=== PATIENT | female | born 1960 | race Caucasian/White ===

== ENCOUNTER → 2019-01-08 | Day surgery (SDC) | payer BC ==
[~2019-01-08] MED LIST: ADIPEX-P37.5 MG PO; ALOE VERA PO; BEET PO; CRANBERRY200 MG PO; DANDELION PO; GRAPESEED PO; GREEN TEA1 EACH PO; HYDROCODON-ACE1 EA11 PO; HYOSCYAMINE 0.125 MG TAB ONE; IMVEXXY RC; KETAMINE HCL INJ 50 MG/ML 10 ML VIAL ONE; LEXAPRO10 MG PO; LIDOCAINE HCL 2% LOCAL INJ 5 ML SDV VIAL INJ ONE; LISINOPRIL HCTZ PO; MIDAZOLAM HCL 2 MG/2 ML VIAL ONE; MILK THISTLE140 M1 PO; OIL OF OREGAN1500 MG PO; ORACEA40 MG PO; PROPOFOL IV EMULSION 10 MG/ML 50 ML VIAL ONE; RESVERATROL50 MG PO; TURMERIC PO; VIT E PO; VITAMIN C PO; WOMEN'S ONE DA1 EACH PO; [UNRECOGNIZED DRUG - OTHER] PO
--- OUTSIDE RECORDS SUMMARY | 2019-01-08 10:26 | XMS REPORT ---
[facility] Address Unknown Phone Unavailable Care Team Providers Care Production Line Manager Name Role Phone Unavailable Unavailable Payers Payer Name Policy Type Policy Number Effective Date Expiration Date Problems This patient has no known problems. Allergies, Adverse Reactions, Alerts Allergy Name Allergy Type Status Severity Reaction(s) Onset Date Inactive Date Treating Clinician Comments No Known Allergies DA Active U 2018-07-24 00:00:00 No Known Allergies DA Active U 2018-07-10 00:00:00 Medications This patient has no known medications. Results Test Description Test Time Test Comments Text Results Atomic Results Result Comments SCR MAMM BILATERAL CHANDA CAD DIGITAL W/AUGMENTATION 2018-12-23 09:08:45 - SCR MAMM BILATERAL CHANDA CAD DIGITAL W/AUGMENTATIONBILATERAL DIGITAL SCREENING MAMMOGRAM 3D/2D WITH CAD WITH AUGMENTATION: 12/18/2018CLINICAL: Asymptomatic. Digital breast tomosynthesis was performed in addition to routine CC and MLO views. Current mammographic images were evaluated by either a [employer] M-Vu or a [employer] ImageChecker CAD (computer aided detection system). No prior exams are available for comparison. The tissue of both breasts is heterogeneously dense. This may lower the sensitivity of mammography. There is a benign-appearing asymmetry in both breasts. Bilateral breast implants are intact. No suspicious mass, architectural distortion, malignant type calcification, or lymph node abnormality detected. IMPRESSION: BENIGNThere is no mammographic evidence of malignancy. Resume annual screening mammography in one year. Your patient's mammogram demonstrates that she has dense breast tissue. This can hide abnormalities. In compliance with [place] law ([place]'s Law), your patient has been sent a letter which informs her of her breast density and notifies her that, depending on her individual risk factors for the development of breast cancer, she might benefit from additional screening tests such as ultrasound. Dense breast tissue, in and of itself, is a relatively common condition. Therefore, this information is not provided to cause undue concern, but rather to raise awareness and to promote discussion regarding the presence of other risk factors, in addition to dense breast tissue.Cristóbal Saldivar M.D. rb/:12/23/2018 09:08:45 Roll Inspector: Evangelina MUNOZ, [facility]-FWletter sent: BIRADS 1-2 Normal Mammogram BI-RADS: 2 Benign GALL BLADDER 2018-07-27 19:46:00 RUN DATE: 07/28/18 [facility] PAGE 1 RUN TIME: 934 Specimen Inquiry RUN USER: INTERFACE PATIENT: YARED ANNE LOC: [facility] U #: [id number] AGE/SX: 57/F ROOM: RE07/24/18REG DR: Naseem Naqvi : 62 BED: DIS: STATUS: [facility] TLOC: SPEC #: [id number] RECD: 07/24/18 STATUS: MARSHALL DAVEN[facility] #: [id number] WES: 07/24/18- SUBM DR: Naseem Naqvi MD ENTERED: 07/24/18 SP TYPE: BRONWYN BREEN DR: ORDERED: LEVEL III SURGI CODES: [id number] - GALLBLADDER, NO PROCEDURES: LEVEL III SURGI (Incomplete) TISSUES: GALLBLADDER, NOS - GALLBLADDER CLINICAL HISTORY 57 year old, gallbladder polyps (wpd) FINAL DIAGNOSIS Gallbladder, cholecystectomy: - chronic cholecystitis - cholesterolosis - benign cholesterol polyps Tissue code 1 CPT code(s): 80672 pkg/wpd 07/27/18 GROSS DESCRIPTION ANATOMIC SOURCE OF TISSUE (per Requisition): Gallbladder The specimen is received in a formalin-filled container, labeled with the patient's name and designated "gallbladder". The specimen consists of a 7.0 x 3.0 x 1.0 cm gallbladder with an attached 0.3 cm cystic duct. The serosa is pink-purple and hyperemic. The lumen contains viscus bile. There are no identifiable choleliths within the lumen or the container. The mucosa is velvety, aguirre-red with bright yellow stippling. There is a 1.0 x 0.4 x 0.3 cm detached bright yellow, polypoid structure. Melt Helper sections are submitted in one cassette. jm/wpd 07/24/18 MICROSCOPIC DESCRIPTION The specimen consists of a gallbladder containing a mild infiltrate of small lymphocytes. Clusters of foamy macrophages are present in the lamina propria and a few benign polyps containing masses of foamy histiocytes are also present. No atypia or malignancy is identified. No gallstones are identified. pkg/wpd CONTINUED ON NEXT PAGE RUN DATE: 07/28/18 [facility] PAGE 2 RUN TIME: 934 Specimen Inquiry RUN USER: INTERFACE SPEC #: [id number] PATIENT: DAYANAYARED Camacho #[id number] (Continued) MICROSCOPIC DESCRIPTION (Continued) 07/27/18 Signed Suki Brooks 07/27/186 END OF REPORT COMPREHENSIVE METABOLIC PANEL 2018-07-10 13:16:00 SODIUM (test code=NA) 141 mEq/L 135-145 POTASSIUM (test code=K) 5.3 mEq/L 3.5-5.0 CHLORIDE (test code=CL) 103 mEq/L 100-115 CARBON DIOXIDE (test code=CO2) 30 mEq/L 22-31 ANION GAP (test code=GAP) 13.00 10-20 GLUCOSE (test code=GLU) 101 mg/dL 65-110 BLOOD UREA NITROGEN (test code=BUN) 11 mg/dL 7-18 GLOMERULAR FILTRATION RATE (test code=GFR) 74 ml/min >60 CREATININE (test code=CREAT) 0.8 mg/dL 0.5-1.0 TOTAL PROTEIN (test code=PROT) 7.3 gm/dL 6.3-8.2 ALBUMIN (test code=ALB) 4.1 gm/dL 3.4-4.8 CALCIUM (test code=CA) 9.9 mg/dL 8.4-10.2 BILIRUBIN TOTAL (test code=BILT) 0.4 mg/dL 0.2-1.0 SGOT/AST (test code=AST) 20 units/L 15-37 SGPT/ALT (test code=ALT) 22 units/L 12-78 ALKALINE PHOSPHATASE TOTAL (test code=ALKP) 78 units/L 46-116 PROTHROMBIN [id number] 12:35:00* Test Item Value Reference Range Comments PROTHROMBIN TIME PATIENT (test code=PTP) 11.1 secs 10.4-12.4 CBC W/AUTO [id number] 12:04:00* Test Item Value Reference Range Comments WHITE BLOOD CELL (test code=WBC) 5.0 K/mm3 6.6-12.1 RED BLOOD CELL (test code=RBC) 4.66 M/mm3 3.45-5.01 HEMOGLOBIN (test code=HGB) 13.8 g/dL 10.7-13.9 HEMATOCRIT (test code=HCT) 44.0 % 32.1-42.1 MEAN CELL VOLUME (test code=MCV) 94 fL 84.1-94.8 MEAN CELL HGB (test code=MCH) 29.6 pg 27-35 MEAN CELL HGB CONCETRATION (test code=MCHC) 31.4 gm/dL 32.2-34.1 RED CELL DISTRIBUTION WIDTH (test code=RDW) 14.2 % 12.4-16.5 PLATELET COUNT (test code=PLT) 289 K/mm3 133-385 IMMATURE PLATELET FRACTION (test code=IPF) 0.0 % 0.0-10.8 MEAN PLATELET VOLUME (test code=MPV) 12.0 fl 9.1-12.7 NEUTROPHIL % (test code=NT%) 54.9 % 56.5-79.4 LYMPHOCYTE % (test code=LY%) 30.8 % 14.3-34.3 MONOCYTE % (test code=MO%) 8.9 % 5.1-10.4 EOSINOPHIL % (test code=EO%) 3.6 % 0.1-3.0 BASOPHIL % (test code=BA%) 1.4 % 0.1-1.0 NEUTROPHIL # (test code=NT#) 2.7 K/mm3 LYMPHOCYTE # (test code=LY#) 1.5 K/mm3 MONOCYTE # (test code=MO#) 0.4 K/mm3 EOSINOPHIL # (test code=EO#) 0.18 K/mm3 BASOPHIL # (test code=BA#) 0.1 K/mm3 RBC MORPHOLOGY REQUIRED (test code=RBCM) NORMAL NORMAL PLATELET MORPHOLOGY REQUIRED (test code=PLTMR) NORMAL NORMAL - XR CHEST 2 [id number] 11:43:00 Patient Name: YARED ANNE Unit No: [id number] EXAMS: CPT CODE: [id number] XR CHEST 2 V 29060 CLINICAL HISTORY: Preop. Gallstones. COMPARISON: None.. PA and lateral films of the chest demonstrate that heart size is normal. Lung beckwith are clear. No evidence of pneumonia or congestive failure is seen. Regional skeletal structures are within normal limits. IMPRESSION: No evidence of pneumonia or congestive failure is seen. at 1147 Reported and signed by: Stephen Prince MD CC: Technologist: RT Lizzy Trnscrbd D/ ([id number]) Maddi Orig Print D/T: S: 07/10/2018 (0303) [facility] NAME: YARED ANNE Radiology Department PHYS: Naseem Dill [address] : 1960 AGE: 57 SEX: F [place] [address] LOC: [facility] PHONE #: [phone] EXAM DATE: 07/10/2018 STATUS: PRE [facility] FAX #: [phone] RAD NO: [id number] Page 1 Signed Report
[2019-01-08 14:25] VITALS: BP 130/69
--- NOTE | 2019-01-08 15:44 | Operative Report ---
DATE OF PROCEDURE: 01/08/2019 SURGEON: Dale Toussaint MD PROCEDURE: Colonoscopy with polypectomy. INDICATIONS FOR COLONOSCOPY: Colorectal cancer screening. MEDICATIONS: The patient was done under MAC, please see anesthesiologist's note. PROCEDURE IN DETAIL: With the patient in left lateral decubitus position, the flexible fiberoptic Olympus colonoscope was inserted into the rectum with ease and advanced all the way to the cecum. It was then withdrawn slowly. Mucosa overlying the cecum appeared to be within normal limits. Some diverticular disease was noted in ascending colon. The transverse and descending grossly appeared to be within normal limits. Some diverticular disease was noted in the sigmoid colon. One polyp was hot biopsied from the sigmoid. The rectum appeared to be within normal limits. The scope was then retroflexed into the distal rectum and small internal hemorrhoids were noted none of which was actively bleeding. The scope was then straightened out and was subsequently withdrawn. The patient tolerated the procedure well. IMPRESSION: 1. Diverticulosis. 2. Sigmoid colon polyp hot biopsied. 3. Internal hemorrhoids none, actively bleeding. PLAN: Follow up histology. Initiate high-fiber, low-fat diet. Initiate high-fiber supplement. The patient might benefit from a followup colonoscopy in 5 years. MD GRABIEL Yanes/MARC /[id number] cc: Charly Redding DO
== END | disposition home or self-care (01) ==
LOC: OR 10:17
PROVIDERS: ATTEND Internal Medicine Gastroenterology
DX: Z12.11 Encounter for screening for malignant neoplasm of colon (principal); K63.5 Polyp of colon; K59.00 Constipation, unspecified; K57.30 Diverticulosis of large intestine without perforation or abscess without bleeding; K64.8 Other hemorrhoids; K21.9 Gastro-esophageal reflux disease without esophagitis; I10 Essential (primary) hypertension; R00.1 Bradycardia, unspecified; F41.9 Anxiety disorder, unspecified; Z01.810 Encounter for preprocedural cardiovascular examination; Z79.84 Long term (current) use of oral hypoglycemic drugs; Z87.891 Personal history of nicotine dependence
CPT/HCPCS: 45384; 93005; J2001; J2250; J2704; 45378

== ENCOUNTER → 2024-06-04 | Day surgery (SDC) | payer BC ==
[~2024-06-04] MED LIST changes: +GLUCAGON FOR INJ 1 MG VIAL ONE; +GLYCOPYRROLATE INJ 0.2 MG/ML VIAL ONE; -HYOSCYAMINE 0.125 MG TAB ONE; -KETAMINE HCL INJ 50 MG/ML 10 ML VIAL ONE; -MIDAZOLAM HCL 2 MG/2 ML VIAL ONE; +PHENYLEPHRINE HCL 1% 10 MG/ML VIAL ONE; +PROPOFOL IV EMULSION 10 MG/ML 20 ML VIAL ONE; -PROPOFOL IV EMULSION 10 MG/ML 50 ML VIAL ONE; +PROPOFOL IV EMULSION 50 ML IV ONE; +VENTOLIN HFA18 GM INH
[2024-06-04] MEDS: LACTATED RINGER'S 1,000 ML ONE (07:57)
[2024-06-04 11:10] VITALS: TEMP 97.1
[2024-06-04 11:40] VITALS: BP 120/70; PULSE 64; RESP 15; O2SAT 98
== END | disposition home or self-care (01) ==
LOC: OR 07:30
PROVIDERS: ATTEND Internal Medicine Gastroenterology
DX: Z09 Encounter for follow-up examination after completed treatment for conditions other than malignant neoplasm (principal); Z86.0100 Personal history of colon polyps, unspecified; K57.30 Diverticulosis of large intestine without perforation or abscess without bleeding; K56.609 Unspecified intestinal obstruction, unspecified as to partial versus complete obstruction; K64.8 Other hemorrhoids; K21.9 Gastro-esophageal reflux disease without esophagitis; Z71.3 Dietary counseling and surveillance; I10 Essential (primary) hypertension; E78.5 Hyperlipidemia, unspecified; J44.9 Chronic obstructive pulmonary disease, unspecified; F41.9 Anxiety disorder, unspecified; G89.29 Other chronic pain; M06.9 Rheumatoid arthritis, unspecified; Z01.810 Encounter for preprocedural cardiovascular examination; Z79.899 Other long term (current) drug therapy; Z68.26 Body mass index [BMI] 26.0-26.9, adult; Z85.828 Personal history of other malignant neoplasm of skin; Z87.891 Personal history of nicotine dependence
CPT/HCPCS: 45378; 93005; J1610; J2003; J2371; J2704 ×2; J7121